=== PATIENT | female | born 1975 | race Hispanic/Latino ===

== ENCOUNTER 2017-01-15 10:08 | Inpatient (IN) ==
[~2017-01-15 10:08] MED LIST: QUELICIN (DOSE) ONE; VALIUM PO PRN; XYLOCAINE 1% 100 ML, EPINEPHRINE 1 MG, SODIUM BICARBONATE 8.4% 12.5 MEQ in NS 1,000 ML INJ SCH; ZEMURON ONE
[2017-01-15] MEDS ORDERED: DIPRIVAN 1% ONE ×2 (10:09→11:29)
[2017-01-15] MEDS ORDERED: FENTANYL ONE ×3 (10:12→16:01)
[2017-01-15] MEDS ORDERED: LUBRIFRESH PM OPH OINTMENT ONE (10:17)
[2017-01-15] MEDS ORDERED: NEO-SYNEPHRINE 0.5% NASAL SPRAY ONE (10:19)
[2017-01-15] MEDS ORDERED: PEPCID ONE (10:40)
[2017-01-15] MEDS ORDERED: LR 1,000 ML ONE (10:40)
[2017-01-15] MEDS ORDERED: REGLAN ONE (10:40)
[2017-01-15] MEDS ORDERED: DECADRON ONE ×2 (10:51→13:43)
[2017-01-15] MEDS ORDERED: TORADOL ONE ×2 (11:10→17:14)
[2017-01-15] MEDS ORDERED: XYLOCAINE-MPF 2% ONE (11:31)
[2017-01-15] MEDS ORDERED: NEOSTIGMINE ONE (11:36)
[2017-01-15] MEDS ORDERED: ROBINUL ONE ×3 (11:36→13:36)
[2017-01-15] MEDS ORDERED: NARCAN ONE (11:47)
[2017-01-15] MEDS ORDERED: EPHEDRINE ONE (12:30)
[2017-01-15] MEDS ORDERED: ZOFRAN ONE (13:43)
[2017-01-15] MEDS: MORPHINE ONE ×3 (16:51→17:07)
[2017-01-15] MEDS: PHENERGAN ONE ×4 (17:11→17:41)
[2017-01-15] MEDS: DILAUDID ONE ×4 (17:27→17:43)
[2017-01-15] MEDS ORDERED: LR 500 ML ONE (17:49)
[2017-01-15] MEDS ORDERED: TRANSDERM-SCOP TD SCH (18:33)
[2017-01-15] MEDS ORDERED: TRANSDERM-SCOP ONE (18:35)
[2017-01-15] MEDS ORDERED: NORCO-10 ONE (18:36)
[2017-01-15] MEDS ORDERED: DILAUDID IV PRN ×2 (18:57→20:51)
[2017-01-15] MEDS ORDERED: NORCO-10 PO PRN (18:57)
[2017-01-15] MEDS ORDERED: LR 2,000 ML ONE (19:26)
[2017-01-15] MEDS ORDERED: ZOFRAN IV PRN (20:51)
--- NOTE | 2017-01-15 21:46 | OPERATIVE NOTE ---
PROCEDURE DATE: 01/15/2017 PREOP DIAGNOSIS: Bilateral varicose veins and leg pain and chronic venous insufficiency. POSTOP DIAGNOSIS: Bilateral varicose veins and leg pain and chronic venous insufficiency. PROCEDURE: 1. Attempted ultrasound-guided radiofrequency ablation of right greater saphenous vein. 2. Stab phlebectomies of left lower extremity varicose veins x7. 3. Stab phlebectomies of right lower extremity varicose veins x13. SURGEONS: Jaiden Avila MD ANESTHESIA: General. ESTIMATED BLOOD LOSS: 50 mL. COMPLICATIONS: None apparent. SPECIMENS: None. FINDINGS: Preoperative ultrasound of the right greater saphenous vein demonstrated clinically significant reflux at the proximal thigh for 0.9 seconds and at the mid to distal thigh for 0.6 seconds, however in the midportion of the thigh the vein was less than 2 cm in diameter. TECHNIQUE: She was brought to the operating room and placed supine on the table. General anesthesia was induced. She was prepped and draped in usual sterile fashion. With the neurodiagnostic technologist assistance I attempted to access the right greater saphenous vein in the distal thigh. Multiple percutaneous attempts were performed with ultrasound guidance but ultimately I was unable to get into the vein. It spasmed in several places and we decided to abort any further attempts. I then turned my attention to the stab phlebectomies on the left leg 1st. She was supine. These varicosities were on the anterior and lateral aspect of her leg. They had been marked preoperatively. We made a total of 7 incisions with a 15 blade and at each incision dissected down to the vein sharply with a knife and a hemostat and then through these incisions worked to pull and tease the vein out of the subcutaneous tissue. Once the vein and its branches had been removed and were ligated we then closed the incisions with running 4-0 subcuticular Monocryl and Steri-Strips. She was then flipped over to a prone position and the varicose veins along her posterior thigh and calf which had previously been marked were then excised in the same fashion. Used total 13 incisions. She did have multiple small branching veins some going deeper, some of the deeper branches were ligated with 3-0 Vicryl. The remaining portions of the vein were teased out of the soft tissue through these multiple incisions. At the conclusion, it was felt that her varicosities had been successfully removed. The leg was flat. There are no obvious bulging varicosities at this point. We closed in the same fashion as described before. She was then awakened in stable condition and transferred to the recovery room. cc: Jaiden Avila MD
--- NOTE | 2017-01-15 21:47 | HISTORY AND PHYSICAL ---
HISTORY OF PRESENT ILLNESS: This is a 41-year-old, female patient of Dr. Avila who underwent stab phlebectomy today in the operating room. In recovery she continued to have pain that will require quite high doses of pain medicine to control, nausea and vomiting that was intractable with IV medications. She is admitted for symptom control this evening. She states now she feels much better, minimal pain. No nausea or vomiting. She is requesting dinner and asking when she can get her dinner. PAST MEDICAL HISTORY: Significant for varicose veins. PAST SURGICAL HISTORY: Stab phlebectomy. SOCIAL HISTORY, FAMILY HISTORY, REVIEW OF SYSTEMS: Otherwise negative. PHYSICAL EXAMINATION: She had no tachycardia in recovery. Temperature is 97.4 degrees, blood pressure 120/74, oxygen saturation 93% on room air. She is alert, in no acute distress. She has dressing in place on bilateral legs. Her compartments are soft. Small bruising on upper thighs but her feet are well-perfused. I do not feel any evidence of a hematoma underneath her dressing. There is no drainage on her dressing. ASSESSMENT/PLAN: A 41-year-old, female with pain, nausea and vomiting after stab phlebectomy today with Dr. Avila in the operating room. Admit her tonight with IV fluids. She can eat as tolerated. We will keep her on pain medicine and antiemetics. Plan for her to go home tomorrow. cc: Jermain Riggs MD
[2017-01-15] MEDS: LR 1,000 ML IV SCH (22:00)
[2017-01-16 07:38] VITALS: BP 103/67
[2017-01-16] MEDS: LR 1,000 ML IV SCH (08:00)
--- NOTE | 2017-01-17 17:46 | DISCHARGE SUMMARY ---
ADMISSION DATE: 01/15/2017 DISCHARGE DATE: 01/16/2017 HISTORY AND HOSPITAL COURSE: A 41-year-old female patient of Dr. Avila'yaron, who underwent a stab phlebectomy yesterday. In the recovery room, she had significant nausea, vomiting, high doses of pain medication requirement, and as such was admitted for control of these. She felt much better after arriving to the floor. She is hydrated, tolerated diet. No further vomiting. Pain was controlled with oral medications, and it was felt safe for discharge home. Followup with Dr. Avila on Wednesday. She will remove her dressings 72 hours postoperative. On the day of her discharge, her dressings were clean, dry, and intact. Her legs were soft, without any evidence of hematoma, and her feet were well-perfused. VITAL SIGNS: She is afebrile, with no tachycardia. Blood pressures were normal. DISCHARGE MEDICATIONS: I gave her a script for Nov[place], Zofran, and Colace. DISCHARGE INSTRUCTIONS: If she develops fevers, worsening pain, nausea, vomiting, she will call. Otherwise, will see Dr. Avila on Wednesday. DISCHARGE ACTIVITY: Continue to remain ambulatory, and up and out of bed. cc: Jermain Riggs MD
== END 2017-01-16 09:49 | disposition home or self-care (01) ==
LOC: OR 10:08 → 4N 19:57
PROVIDERS: ADMIT Surgery; ATTEND Surgery